=== PATIENT | female | born 1965 | race African-American/Black ===

== ENCOUNTER 2017-03-20 21:30 | Emergency (ER) | payer OTHER ==
[~2017-03-20] VITALS: Ht 170.2 cm; Wt 90.0 kg
[~2017-03-20 21:30] MED LIST: ESTR0.1D3 TD; MAXZ PO; PANT20 PO; PRAV10 PO; TERB250; VITA20003 PO
[2017-03-20 21:33] VITALS: BP 185/92; PULSE 81; RESP 16; TEMP 98.7; O2SAT 98
[2017-03-20 23:42] VITALS: BP_SYST 150; BP_SYST 198; BP_DIAS 74; BP_DIAS 82; PULSE 68; RESP 16; O2SAT 97
[2017-03-20] MEDS ORDERED: ONDANSETRON ODT 4 MG TAB PO ONE (23:45)
[2017-03-20] MEDS ORDERED: TRIA1TAB5 PO (23:47)
[2017-03-20] MEDS ORDERED: AMLO10TA2 PO (23:47)
[2017-03-20] MEDS ORDERED: PRAV40TA2 PO (23:47)
--- NOTE | 2017-03-21 00:35 | PD ---
HPI . GI complaint Chief Complaint: GI Complaint Time Seen by Provider: 23:35 Travel History International Travel<30 days: No Contact w/Intl Traveler<30days: No Traveled to known affect area: No History of Present Illness HPI 51-year-old female with no significant past medical history presents with having sudden onset nausea vomiting diarrhea beginning proximal to 6 hours ago. Patient notes slight resolution of symptoms over the past hour. Patient denies any idiosyncratic food intake, has no travel history, has not had any recent antibiotics, no contact with anyone in a half-way or inpatient hospital setting. Denies fever chills sweats, denies hematemesis melena or hematochezia. Crampy abdominal pain that is now resolved PFSH Past Medical History Narrative Medical Past medical history reviewed Arthritis: No Asthma: Yes Autoimmune Disease: No Blood Disorders: No Anxiety: No Depression: No Heart Rhythm Problems: No Cancer: No Cardiac Catheterization: No Cardiovascular Problems: Yes (HTN) High Cholesterol: No Chemotherapy: No Chest Pain: No Congestive Heart Failure: No COPD: No Cerebrovascular Accident: No Diabetes: No Diminished Hearing: No Endocrine: No GERD: No Glaucoma: No Genitourinary: No Headaches: No Hepatitis: No Hiatal Hernia: No Hypertension: Yes Immune Disorder: No Kidney Stones: No Musculoskeletal: No Neurologic: No Psychiatric: No Respiratory: Yes (Asthma) Myocardial Infarction: No Radiation Therapy: No Renal Failure: No Seizures: No Sickle Cell Disease: No Sleep Apnea: No Thyroid Disease: No Ulcer: No Tetanus Vaccination: < 5 Years Influenza Vaccination: No ?: Not Past Surgical History Abdominal Surgery: No AICD: No Cardiac Surgery: No Coronary Artery Bypass Graft: No Ear Surgery: No Endocrine Surgery: No Eye Surgery: No Genitourinary Surgery: No Gynecologic Surgery: No Hysterectomy: Yes Joint Replacement: No Oral Surgery: No Pacemaker: No Thoracic Surgery: No Other Surgery: Yes (ectopic preg 1997) Social History Alcohol Use: No Tobacco Use: No Substance Use: No Allergies-Medications (Allergen,Severity, Reaction): Coded Allergies: Sulfa (Sulfonamide Antibiotics) (Unverified Allergy, Severe, Swelling, ) benazepril (Unverified Allergy, Severe, 09/25/16) captopril (Unverified Allergy, Severe, 09/25/16) enalaprilat (Unverified Allergy, Severe, 09/25/16) fosinopril (Unverified Allergy, Severe, 09/25/16) lisinopril (Unverified Allergy, Severe, 09/25/16) quinapril (Unverified Allergy, Severe, 09/25/16) Reported Meds & Prescriptions Reported Meds & Active Scripts Active Reported Pravastatin 40 Mg Tab 40 Mg PO DAILY Triamterene-Hydrochlorothiazide 75-50 Mg Tab 1 Tab PO DAILY Amlodipine (Amlodipine Besylate) 10 Mg Tab 10 Mg PO DAILY Narrative Medication Allergies and medications reviewed Review of Systems Except as stated in HPI: all other systems reviewed are Neg General / Constitutional: No: Fever Eyes: No: Visual changes HENT: No: Headaches Cardiovascular: No: Chest Pain or Discomfort Respiratory: No: Shortness of Breath Gastrointestinal: Positive: Nausea, Vomiting, Diarrhea, Abdominal Pain, No: Hematemesis, Hematochezia Genitourinary: No: Dysuria Musculoskeletal: No: Pain Skin: No Rash Neurologic: No: Weakness Psychiatric: No: Depression Endocrine: No: Polydipsia Hematologic/Lymphatic: No: Easy Bruising Physical Exam Narrative GENERAL: Awake alert oriented 3 no acute distress vital signs afebrile normal and stable. See repeat blood pressure results SKIN: Warm and dry. Color is normal no diaphoresis cyanosis or pallor HEAD: Atraumatic. Normocephalic. EYES: Pupils equal and round. No scleral icterus. No injection or drainage. ENT: No nasal bleeding or discharge. Mucous membranes pink and moist. NECK: Trachea midline. No JVD. Supple nontender full range of motion CARDIOVASCULAR: Regular rate and rhythm. No murmurs rubs gallops RESPIRATORY: No accessory muscle use. Clear to auscultation. Breath sounds equal bilaterally. GASTROINTESTINAL: Abdomen soft, non-tender, nondistended. Hepatic and splenic margins not palpable. MUSCULOSKELETAL: Extremities without clubbing, cyanosis, or edema. No obvious deformities. NEUROLOGICAL: Awake and alert. No obvious cranial nerve deficits. Motor grossly within normal limits. Five out of 5 muscle strength in the arms and legs. Normal speech. PSYCHIATRIC: Appropriate mood and affect; insight and judgment normal. Data Data Last Documented VS Vital Signs Date Time Temp Pulse Resp B/P (MAP) Pulse Ox O2 Delivery O2 Flow Rate FiO2 03/20/17 23:42 68 16 150/82 (104) 97 Room Air 03/20/17 21:33 98.7 Orders Orders Ondansetron Odt (Zofran Odt) (03/20/17 23:45) [facility] Medical Decision Making Medical Screen Exam Complete: Yes Emergency Medical Condition: Yes Medical Record Reviewed: Yes Differential Diagnosis Food poisoning, gastroenteritis, dehydration Narrative Course Patient manager of global Zofran 4 mg ODT with near complete resolution of symptoms. Patient tolerating by mouth well. Discharge Diagnosis Primary Impression: Food poisoning Qualified Codes: T62.91XA - Toxic effect of unspecified noxious substance eaten as food, accidental (unintentional), initial encounter Patient Instructions: Food Poisoning (ED), General Instructions Additional Instructions: Drink plenty of fluids. Advance diet slowly as tolerated. Follow-up with your doctor. Return for worsening Disposition: 01 DISCHARGE HOME Condition: Stable David Haider MD Mar 21, 2017 00:35
== END 2017-03-21 00:44 | disposition home or self-care (01) ==
LOC: NEPE 21:30
DX: T62.91XA Toxic effect of unspecified noxious substance eaten as food, accidental (unintentional), initial encounter (principal); I10 Essential (primary) hypertension
CPT/HCPCS: 99283

== ENCOUNTER 2017-08-04 21:36 | Observation (INO) | payer OTHER ==
[~2017-08-04] VITALS: Ht 165.1 cm; Wt 72.0 kg
[~2017-08-04 21:36] MED LIST changes: +AMLO10TA2 PO; -ESTR0.1D3 TD; -MAXZ PO; -PANT20 PO; -PRAV10 PO; +PRAV40TA2 PO; -TERB250; +TRIA1TAB5 PO; -VITA20003 PO
[2017-08-04 22:00] VITALS: BP 177/84; PULSE 57; RESP 16; TEMP 98.2; O2SAT 99
--- NOTE | 2017-08-04 22:54 | PD ---
HPI Chief Complaint: Chest Pain Time Seen by Provider: 22:49 Travel History International Travel<30 days: No Contact w/Intl Traveler<30days: No Traveled to known affect area: No History of Present Illness HPI The patient is a 51 year old female who presents to the [facility] emergency department with a history of chest pain that she reports first began after eating on Friday. She reports that she stood up after a meal and began to have a sharp left-sided chest pain that radiated to her back and intermittently radiates up to the right side of her jaw and left shoulder. The patient reports that initially she thought it may be related to indigestion or acid reflux that she has had this in the past. She reports that she has been taking Zantac since then without any relief. She reports that whenever she becomes active or anxious she will developed the pain again. She reports that walking seems to induce the pain. She denies having any associated shortness of breath, nausea or vomiting, or diaphoresis associated with this. She denies having any prior history of coronary artery disease, DVT, or PE. She denies having any lower extremity edema or calf pain associated with this. The patient reports that last week she was seen by her primary care physician related to nasal congestion and postnasal drip and was started on Zyrtec and Flonase which is helped. She denies having any recent fevers. Otherwise on review of systems, the patient denies having any abdominal pain, diarrhea, urinary symptoms, or neurologic symptoms. [facility] Past Medical History Narrative Medical The patient's past medical history is significant for hypertension, seasonal allergies, hyperlipidemia, acid reflux. Arthritis: No Asthma: Yes Autoimmune Disease: No Blood Disorders: No Anxiety: No Depression: No Heart Rhythm Problems: No Cancer: No Cardiac Catheterization: No Cardiovascular Problems: Yes (HTN) High Cholesterol: No Chemotherapy: No Chest Pain: No Congestive Heart Failure: No COPD: No Cerebrovascular Accident: No Diabetes: No Diminished Hearing: No Endocrine: No GERD: No Glaucoma: No Genitourinary: No Headaches: No Hepatitis: No Hiatal Hernia: No Heparin Induced Thrombocytopen: No Hypertension: Yes Immune Disorder: No Kidney Stones: No Musculoskeletal: No Neurologic: No Psychiatric: No Reproductive: No Respiratory: Yes (Asthma) Immunizations Current: Yes Myocardial Infarction: No Radiation Therapy: No Renal Failure: No Seizures: No Sickle Cell Disease: No Sleep Apnea: No Thyroid Disease: No Ulcer: No Tetanus Vaccination: Unknown Influenza Vaccination: No ?: Not Past Surgical History Narrative Surgical The patient's past surgical history is significant for hysterectomy, ectopic Abdominal Surgery: No AICD: No Cardiac Surgery: No Coronary Artery Bypass Graft: No Ear Surgery: No Endocrine Surgery: No Eye Surgery: No Genitourinary Surgery: No Gynecologic Surgery: No Hysterectomy: Yes Insulin Pump: No Joint Replacement: No Neurologic Surgery: No Oral Surgery: No Pacemaker: No Thoracic Surgery: No Other Surgery: Yes (ectopic preg 1996) Family History Family Myocardial Infarction: No Social History Alcohol Use: No Tobacco Use: No Substance Use: No Allergies-Medications (Allergen,Severity, Reaction): Coded Allergies: Sulfa (Sulfonamide Antibiotics) (Unverified Allergy, Severe, Swelling, ) benazepril (Unverified Allergy, Severe, 08/04/17) captopril (Unverified Allergy, Severe, 08/04/17) enalaprilat (Unverified Allergy, Severe, 08/04/17) fosinopril (Unverified Allergy, Severe, 08/04/17) lisinopril (Unverified Allergy, Severe, 08/04/17) quinapril (Unverified Allergy, Severe, 08/04/17) Reported Meds & Prescriptions Reported Meds & Active Scripts Active Ranitidine (Ranitidine HCl) 150 Mg Tab 150 Mg PO DAILY Reported Pravastatin 40 Mg Tab 40 Mg PO DAILY Triamterene-Hydrochlorothiazide 75-50 Mg Tab 1 Tab PO DAILY Amlodipine (Amlodipine Besylate) 10 Mg Tab 10 Mg PO DAILY Review of Systems Except as stated in HPI: all other systems reviewed are Neg General / Constitutional: No: Fever Eyes: No: Visual changes HENT: Positive: Rhinorrhea, Congestion, No: Headaches Cardiovascular: Positive: Chest Pain or Discomfort Respiratory: No: Shortness of Breath Gastrointestinal: Positive: Indigestion, No: Nausea, Vomiting, Diarrhea, Abdominal Pain Genitourinary: No: Dysuria Musculoskeletal: No: Pain Skin: No Rash Neurologic: No: Weakness, Focal Abnormalities, Change in Mentation, Slurred Speech, Sensory Disturbance Psychiatric: No: Depression Endocrine: No: Polydipsia Hematologic/Lymphatic: No: Easy Bruising Physical Exam Narrative General: The patient is a well-developed well-nourished female in no acute distress. Head and Neck exam: Head is normocephalic atraumatic. Eyes: EOMI, pupils are equal round and reactive to light. Nose: Midline septum with pink mucous membranes Mouth: Dentition unremarkable. Moist mucus membranes. Posterior oropharynx is not erythematous. No tonsillar hypertrophy. Uvula midline. Airway patent. Neck: No palpable lymphadenopathy. No nuchal rigidity. No thyromegaly. Cardiovascular: Regular rate and rhythm without murmurs, gallops, or rubs. No pulse deficit to the extremities on simultaneous auscultation and palpation of her radial artery. Lungs: Clear to auscultation bilaterally. No wheezes, rhonchi, or rales. Abdomen: Soft, without tenderness to palpation in all 4 quadrants of the abdomen. No guarding, rebound, or rigidity. Normal bowel sounds are audible. No tenderness on palpation of McBurney's point. Extremities: No clubbing, cyanosis, or edema. 2+ pulses in all 4 extremities. No calf tenderness on palpation. Back: No spinous process tenderness to palpation. No costovertebral angle tenderness to palpation. Neurologic Exam: Grossly nonfocal. Skin Exam: No rash noted. Intact skin that is warm and dry. The patient is noted to have areas of prior skin grafting on her right upper extremity, right shoulder area. Data Data Last Documented VS Vital Signs Date Time Temp Pulse Resp B/P (MAP) Pulse Ox O2 Delivery O2 Flow Rate FiO2 08/04/17 22:00 98.2 57 16 177/84 (115) 99 Orders Orders Electrocardiogram (08/04/17 22:50) B-Type Natriuretic Peptide (08/04/17 22:50) Ckmb (Isoenzyme) Profile (08/04/17 22:50) Complete Blood Count With Diff (08/04/17 22:50) Comprehensive Metabolic Panel (08/04/17 22:50) Magnesium (Mg) (08/04/17 22:50) Prothrombin Time / Inr (Pt) (08/04/17 22:50) Act Partial Throm Time (Ptt) (08/04/17 22:50) Troponin I (08/04/17 22:50) Lipase (08/04/17 22:50) Chest, Single Ap (08/04/17 22:50) Ecg Monitoring (08/04/17 22:50) Bilateral Bp Monitoring (08/04/17 22:50) Iv Access Insert/Monitor (08/04/17 22:50) Oximetry (08/04/17 22:50) Oxygen Administration (08/04/17 22:50) Nitroglycerin 2% Oint (Nitroglycerin 2% (08/04/17 23:00) Sodium Chloride 0.9% Flush (Ns Flush) (08/04/17 23:00) Nitroglycerin Sl (Nitrostat Sl) (08/04/17 23:00) Sodium Chlorid 0.9% 500 Ml Inj (Ns 500 M (08/04/17 23:00) Aspirin Chew (Aspirin Chew) (08/04/17 23:15) CKMB (08/04/17 23:05) CKMB% (08/04/17 23:05) Admit Order (Ed Use Only) (08/05/17 00:46) Labs Laboratory Tests Test 08/04/17 23:05 White Blood Count 5.6 TH/MM3 Red Blood Count 4.61 MIL/MM3 Hemoglobin 13.8 GM/DL Hematocrit 41.1 % Mean Corpuscular Volume 89.2 FL Mean Corpuscular Hemoglobin 29.9 PG Mean Corpuscular Hemoglobin Concent 33.6 % Red Cell Distribution Width 13.2 % Platelet Count 262 TH/MM3 Mean Platelet Volume 8.7 FL Neutrophils (%) (Auto) 50.6 % Lymphocytes (%) (Auto) 39.0 % Monocytes (%) (Auto) 8.6 % Eosinophils (%) (Auto) 1.3 % Basophils (%) (Auto) 0.5 % Neutrophils # (Auto) 2.8 TH/MM3 Lymphocytes # (Auto) 2.2 TH/MM3 Monocytes # (Auto) 0.5 TH/MM3 Eosinophils # (Auto) 0.1 TH/MM3 Basophils # (Auto) 0.0 TH/MM3 CBC Comment DIFF FINAL Differential Comment Prothrombin Time 10.2 SEC Prothromb Time International Ratio 1.0 RATIO Activated Partial Thromboplast Time 21.1 SEC Blood Urea Nitrogen 11 MG/DL Creatinine 0.84 MG/DL Random Glucose 85 MG/DL Total Protein 7.7 GM/DL Albumin 4.5 GM/DL Calcium Level 8.8 MG/DL Magnesium Level 2.2 MG/DL Alkaline Phosphatase 67 U/L Aspartate Amino Transf (AST/SGOT) 16 U/L Alanine Aminotransferase (ALT/SGPT) 12 U/L Total Bilirubin 0.8 MG/DL Sodium Level 140 MEQ/L Potassium Level 3.3 MEQ/L Chloride Level 102 MEQ/L Carbon Dioxide Level 29.4 MEQ/L Anion Gap 9 MEQ/L Estimat Glomerular Filtration Rate 87 ML/MIN Total Creatine Kinase 103 U/L Creatine Kinase MB LESS THAN 0.5 NG/ML Troponin I LESS THAN 0.02 NG/ML B-Type Natriuretic Peptide 10 PG/ML Lipase 135 U/L MDM Medical Decision Making Medical Screen Exam Complete: Yes Emergency Medical Condition: Yes Medical Record Reviewed: Yes Differential Diagnosis Acute coronary syndrome, versus pancreatitis, versus acid reflux, versus pulmonary embolism Narrative Course During the course of the patient's emergency department visit, the patient's history, examination, and differential diagnosis were reviewed with the patient. The patient was placed on a site monitor with oximetry and frequent blood pressure monitoring. The patient had IV access obtained and blood work sent for analysis. The patient had an EKG done on arrival. The patient's EKG shows a sinus bradycardia heart rate of 57, QRS duration is 81 ms, QTC [address] segment elevation is noted, T waves are inverted in V1. The PERC rule and Wells rule for pulmonary embolism were used to risk of PE and the patient's risk was found to be low. The patient was initially provided aspirin 324 mg p.o. 1, nitroglycerin sublingual 1, nitroglycerin 1 inch to the chest wall, normal saline at 500 mL bolus 1. The patient's laboratory studies were reviewed and remarkable for 08/04/17 23:05 Total Protein 7.7, Albumin 4.5, Calcium Level 8.8, Magnesium Level 2.2, Alkaline Phosphatase 67, Aspartate Amino Transf (AST/SGOT) 16, Alanine Aminotransferase (ALT/SGPT) 12, Total Bilirubin 0.8. The patient's initial set of cardiac enzymes are within normal limits, BNP is within normal limits, lipase is also within normal limits. Radiology studies were reviewed and remarkable for Last Impressions Chest X-Ray 08/04/17 2250 Signed Impressions: CONCLUSION: No acute cardiopulmonary abnormality is identified. The patient's results were discussed with the patient, including the plan of care. I explained that further testing and/ or monitoring is indicated based on the patient's history, examination, and/ or laboratory findings. Therefore, I recommended admission for additional evaluation. The patient expressed understanding and was agreeable with this plan. The patient was admitted to the hospital in stable condition and sent to a bed under the care of the chest pain center. Diagnosis Primary Impression: Chest pain, rule out acute myocardial infarction Admitting Information Admitting Physician Requests: Observation Scripts Ranitidine (Ranitidine) 150 Mg Tab 150 MG PO DAILY for Heartburn Management, #30 TAB 0 Refills Prov: Ely Perez 08/05/17 Chantell Monte MD Aug 04, 2017 22:54
[2017-08-04] MEDS ORDERED: NITROGLYCERIN 0.4 MG SL 25 TABS/BTL SL ONE (23:00)
[2017-08-04] MEDS ORDERED: SODIUM CHLORID 0.9% 500 ML INJ 500 ML IV ONE (23:00)
[2017-08-04] MEDS ORDERED: NITROGLYCERIN 2% OINT 1 GM PACKET TOP ONE (23:00)
[2017-08-04] MEDS ORDERED: SODIUM CHLORIDE 0.9% FLUSH 10 ML FLUSH IVF PRN (23:00)
[2017-08-04] MEDS ORDERED: ASPIRIN 81 MG CHEW TAB CHEW ONE (23:15)
[2017-08-04 23:19] LABS: AUTOMATED NEUTROPHIL # 2.8 TH/MM3 (1.8-7.7); BASOPHIL % 0.5 % (0.0-2.0); EOSINOPHIL # 0.1 TH/MM3 (0-0.4); EOSINOPHIL % 1.3 % (0.0-4.0); HEMATOCRIT 41.1 % (35.0-46.0); HEMOGLOBIN 13.8 GM/DL (11.6-15.3); LYMPHOCYTE # 2.2 TH/MM3 (1.0-4.8); MEAN CELL VOLUME 89.2 FL (80.0-100.0); MEAN CORPUSCULAR HEMOGLOBIN 29.9 PG (27.0-34.0); MEAN CORPUSCULAR HGB CONC 33.6 % (32.0-36.0); MEAN PLATELET VOLUME 8.7 FL (7.0-11.0); MONO % 8.6 % (0.0-8.0); MONOCYTE # 0.5 TH/MM3 (0-0.9); NEUT % 50.6 % (16.0-70.0); PLATELET COUNT 262 TH/MM3 (150-450); RED BLOOD COUNT 4.61 MIL/MM3 (4.00-5.30); RED CELL DISTRIBUTION WIDTH 13.2 % (11.6-17.2); WHITE BLOOD COUNT 5.6 TH/MM3 (4.0-11.0)
--- NOTE | 2017-08-04 23:23 | RADRPT ---
EXAM DATE: 08/04/2017 11:20 PM EDT AGE/SEX: 51 years / Female INDICATIONS: Short of breath. Chest pain. Back pain. CLINICAL DATA: This is the patient's initial encounter. Patient reports that signs and symptoms have been present for 1 day and indicates a pain score of 5/10. MEDICAL/SURGICAL HISTORY: None. None. COMPARISON: [facility] [place], CHEST SINGLE AP, 12/08/2012. . FINDINGS: Portable AP view of the chest demonstrates a normal-sized cardiac silhouette. No effusion, consolidat ion, or pneumothorax is identified. Lungs are mildly underinflated. The bones and soft tissues demons trate no acute finding. EKG lines overlie the patient. CONCLUSION: No acute cardiopulmonary abnormality is identified. Electronically signed by: Donny Mariano MD 08/04/2017 11:22 PM EDT
[2017-08-04 23:33] LABS: PROTHROMBIN TIME - PATIENT 10.2 SEC (9.8-11.6)
[2017-08-04 23:52] LABS: ALKALINE PHOSPHATASE 67 U/L (45-117); ALT (GPT) 12 U/L (10-53); TOTAL BILIRUBIN ADULT 0.8 MG/DL (0.2-1.0); TOTAL PROTEIN 7.7 GM/DL (6.4-8.2); TROPONIN I LESS THAN 0.02 NG/ML (0.02-0.05)
[2017-08-05 00:04] LABS: ALBUMIN 4.5 GM/DL (3.4-5.0); AST (GOT) 16 U/L (15-37); BICARBONATE 29.4 MEQ/L (21.0-32.0); BLOOD UREA NITROGEN 11 MG/DL (7-18); CALCIUM 8.8 MG/DL (8.5-10.1); CHLORIDE 102 MEQ/L (98-107); CREATININE 0.84 MG/DL (0.50-1.00); GLOMERULAR FILTRATION RATE 87 ML/MIN (>89); GLUCOSE,RANDOM 85 MG/DL (74-106); MAGNESIUM 2.2 MG/DL (1.5-2.5); SODIUM (NA) 140 MEQ/L (136-145)
[2017-08-05 02:42] VITALS: BP 159/81; PULSE 55; RESP 17; O2SAT 98
[2017-08-05] MEDS ORDERED: SODIUM CHLORIDE 0.9% FLUSH 10 ML FLUSH IV FLUSH PRN (03:00)
[2017-08-05] MEDS ORDERED: ACETAMINOPHEN 500 MG CPLT PO PRN (03:00)
[2017-08-05 04:11] VITALS: BP 144/75; PULSE 53; RESP 16; TEMP 97.9; O2SAT 97
[2017-08-05 06:12] LABS: TROPONIN I LESS THAN 0.02 NG/ML (0.02-0.05)
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
[2017-08-05 08:00] VITALS: BP 122/68; PULSE 58; PULSE 72; RESP 15; TEMP 97.5; O2SAT 97
[2017-08-05 08:01] VITALS: O2SAT 98
[2017-08-05 08:20] LABS: TROPONIN I LESS THAN 0.02 NG/ML (0.02-0.05)
[2017-08-05] MEDS ORDERED: SODIUM CHLORIDE 0.9% FLUSH 10 ML FLUSH IV FLUSH SCH (09:00)
[2017-08-05] MEDS ORDERED: FAMOTIDINE 20 MG TAB PO SCH (09:00)
--- NOTE | 2017-08-05 09:54 | HHI.DCPOC ---
Discharge Care Plan Diagnosis: (1) Atypical chest pain (2) GERD (gastroesophageal reflux disease) Goals to Promote Your Health * To prevent worsening of your condition and complications * To maintain your health at the optimal level Directions to Meet Your Goals Take your medications as prescribed Follow your dietary instruction Follow activity as directed Keep your appointments as scheduled Take your immunizations and boosters as scheduled If your symptoms worsen call your PCP, if no PCP go to Urgent Care Center or Emergency Room Smoking is Dangerous to Your Health. Avoid second hand smoke Call the 24-hour hour crisis hotline for domestic abuse at Ely Perez Aug 05, 2017 09:54
[2017-08-05] MEDS ORDERED: RANI150T PO (09:55)
--- NOTE | 2017-08-05 16:38 | EKG ---
Date Performed: 08/05/2017 Time Performed: 04:17:45 PTAGE: 51 years EKG: SINUS BRADYCARDIA NONSPECIFIC T-WAVE ABNORMALITY BORDERLINE ECG PREVIOUS TRACING : 08/04/2017 21.47 Since previous tracing, no significant change noted DOCTOR: Keshawn Carcamo Interpretating Date/Time 08/05/2017 16:38:02
--- NOTE | 2017-08-05 16:38 | EKG ---
Date Performed: 08/05/2017 Time Performed: 06:35:10 PTAGE: 51 years EKG: SINUS BRADYCARDIA WITH SHORT [place] INTERVAL NONSPECIFIC T-WAVE ABNORMALITY BORDERLINE ECG PREVIOUS TRACING : 08/05/2017 04.17 Since previous tracing, no significant change noted DOCTOR: Keshawn Carcamo Interpretating Date/Time 08/05/2017 16:37:00
--- NOTE | 2017-08-05 16:39 | EKG ---
Date Performed: 08/04/2017 Time Performed: 21:47:48 PTAGE: 51 years EKG: SINUS BRADYCARDIA NONSPECIFIC T-WAVE ABNORMALITY BORDERLINE ECG PREVIOUS TRACING : 12/09/2012 02.18 Since previous tracing, no significant change noted DOCTOR: Keshawn Carcamo Interpretating Date/Time 08/05/2017 16:38:43
--- NOTE | 2017-08-05 16:45 | TR ---
Date Performed: 08/05/2017 Time Performed: 09:22:53 DOCTOR: Keshawn Carcamo DRUG LIST: CLINICAL HISTORY: REASON FOR TEST: CP R/O ACS REASON FOR ENDING: OBSERVATION: CONCLUSION: Ethan protocol completed. Stopped sec to exceeding target heart rate and leg fatigue . Maximum TM=630 Target HR Nuicfwgj=553.0% Maximum EB=055/82 Total Exercise Time=5:02. No repord ches t discomfort. Fair exercise tolerance. Normal bp response. No st segment changes. Baseline nonspecifi c t waves changes. Frequent PVCs at peak. Recovery quick and unremarkable. COMMENTS: Patient exercised using the Ethan protocol. No electrocardiographic changes were seen to suggest ischemia. Hemodynamic response to exercise was normal. No significant arrhythmia was prese nt.
== END 2017-08-05 12:07 | disposition home or self-care (01) ==
LOC: NEPC 21:36 → NEDA 08-05 00:48 → NEPGCP 08-05 03:31
PROVIDERS: ADMIT Internal Medicine Cardiovascular Disease; ATTEND Internal Medicine Cardiovascular Disease
DX: R07.89 Other chest pain (principal); I10 Essential (primary) hypertension; E78.5 Hyperlipidemia, unspecified; K21.9 Gastro-esophageal reflux disease without esophagitis; J45.909 Unspecified asthma, uncomplicated; I26.99 Other pulmonary embolism without acute cor pulmonale; Z79.82 Long term (current) use of aspirin; Z90.710 Acquired absence of both cervix and uterus
CPT/HCPCS: 71045; 80053; 82550; 82552; 83690; 83735; 83880; 84484; 85025; 85610; 85730; 93005; 93017; 96360; 96361; 99285; G0378; J7040